=== PATIENT | female | born 1970 | race Caucasian/White ===

== ENCOUNTER → 2018-09-11 | Outpatient (CLI) | payer SELFPAY ==
[~2018-09-11] MED LIST: ASP81TEC PO; ISM30TCR PO; MTP25TSR PO; PRD20T PO; SMV10T PO
--- NOTE | 2018-09-11 19:57 | Diagnostic Imaging Report ---
INDICATION: Bilateral breast tenderness. EXAMINATION: Sonographic interrogation of all four quadrants and retroareolar regions of bilateral breasts was performed as well as bilateral axillae. FINDINGS: No sonographic abnormalities are identified within either breast. No solid or cystic masses are detected. IMPRESSION: Unremarkable bilateral breast ultrasound. Clinical followup is recommended. ACR BI-RADS Category 1: Negative. Result letter will be mailed to the patient. Note: At least 10% of breast cancer is not imaged by mammography. Dictated by: Dictated on workstation # [id number]
--- NOTE | 2018-09-11 20:03 | Diagnostic Imaging Report ---
INDICATION: Bilateral breast pain. No prior mammograms are available for comparison. 2-D and 3-D bilateral diagnostic mammography was performed with computer-aided detection (CAD) system. FINDINGS: Both breasts are heterogeneously dense, limiting the sensitivity of mammography. No mass or malignant-appearing microcalcifications are seen. The axillae are unremarkable. IMPRESSION: No mammographic features suspicious for malignancy are identified. Even so, sonographic interrogation of bilateral breasts is recommended for further evaluation and will be performed today. ACR BI-RADS Category 0: Incomplete. (Needs additional imaging evaluation). Result letter will be mailed to the patient. Note: At least 10% of breast cancer is not imaged by mammography. Dictated by: Dictated on workstation # [id number]
== END ==
LOC: RAD 12:49
PROVIDERS: ATTEND Nurse Practitioner Family
DX: N64.4 Mastodynia (principal)
CPT/HCPCS: 77066

== ENCOUNTER → 2019-08-12 | Outpatient (CLI) | payer OTHER ==
--- NOTE | 2019-08-12 15:21 | Diagnostic Imaging Report ---
PROCEDURE: CT maxillofacial without contrast. TECHNIQUE: Multiple contiguous axial images were obtained through the facial bones without the use of intravenous contrast. Auto Exposure Controls were utilized during the CT exam to meet ALARA standards for radiation dose reduction. INDICATION: Nasal injury. FINDINGS: The mandible is intact. The zygomatic arches are intact. The maxillary sinus todd appear to be intact. No displaced nasal bone fracture is seen. The nasal septum is deviated to the right. The orbital todd appear to be intact. The visualized paranasal sinuses are clear. IMPRESSION: No facial bone fracture is detected. Dictated by: Dictated on workstation # [id number]
== END ==
LOC: RAD 14:41
PROVIDERS: ATTEND Nurse Practitioner
DX: S09.92XA Unspecified injury of nose, initial encounter (principal); X58.XXXA Exposure to other specified factors, initial encounter
CPT/HCPCS: 70486

== ENCOUNTER 2021-05-17 14:41 | Inpatient (IN) | payer SELFPAY ==
[~2021-05-17] VITALS: Ht 149.2 cm; Wt 72.1 kg
[2021-05-17] MEDS ORDERED: NS IV 1000 ML 1,000 ML IV SCH (15:15)
[2021-05-17 15:26] LABS: BASOPHILS % (AUTO) 0 % (0-10); EOSINOPHILS % (AUTO) 0 % (0-10); HEMATOCRIT 45 % (35-52); HEMOGLOBIN 14.8 g/dL (11.5-16.0); LYMPHOCYTES # (AUTO) 0.7 10^3/uL (1.0-4.0); LYMPHOCYTES % (AUTO) 7 % (12-44); MEAN CORPUSCULAR HEMOGLOBIN 31 pg (25-34); MEAN CORPUSCULAR HGB CONC 33 g/dL (32-36); MEAN CORPUSCULAR VOLUME 92 fL (80-99); MEAN PLATELET VOLUME 9.9 fL (9.0-12.2); MONOCYTES # (AUTO) 0.2 10^3/uL (0.0-1.0); MONOCYTES % (AUTO) 2 % (0-12); NEUTROPHILS # (AUTO) 9.1 10^3/uL (1.8-7.8); NEUTROPHILS % (AUTO) 90 % (42-75); PLATELET COUNT 274 10^3/uL (130-400); WHITE BLOOD COUNT 10.1 10^3/uL (4.3-11.0)
[2021-05-17] MEDS ORDERED: ONDANSETRON 4 MG/2 ML (SDV) Z0FRAN IVP ONE (15:30)
[2021-05-17 15:33] LABS: ALBUMIN 4.2 GM/DL (3.2-4.5)
[2021-05-17 15:34] LABS: BILIRUBIN,URINE NEGATIVE (NEGATIVE); CLARITY,URINE CLEAR; COLOR,URINE YELLOW; GLUCOSE, URINE (UA) NEGATIVE (NEGATIVE); KETONES,URINE NEGATIVE (NEGATIVE); LEUKOCYTE ESTERASE ,URINE 2+ (NEGATIVE); NITRITE,URINE NEGATIVE (NEGATIVE); PH,URINE 7.5 (5-9); PROTEIN,URINE NEGATIVE (NEGATIVE)
[2021-05-17 15:34] LABS: CHLORIDE 105 MMOL/L (98-107); SODIUM 142 MMOL/L (135-145)
[2021-05-17 15:35] LABS: CALCIUM 9.7 MG/DL (8.5-10.1)
[2021-05-17 15:36] LABS: GLUCOSE 149 MG/DL (70-105)
[2021-05-17 15:37] LABS: CARBON DIOXIDE 26 MMOL/L (21-32)
[2021-05-17 15:38] LABS: BILIRUBIN,TOTAL 0.4 MG/DL (0.1-1.0)
[2021-05-17 15:39] LABS: ALKALINE PHOSPHATASE 86 U/L (40-136)
[2021-05-17 15:40] LABS: CREATININE SERUM 0.79 MG/DL (0.60-1.30); GFR ESTIMATED > 60
[2021-05-17 15:41] LABS: ATYPICAL LYMPHOCYTES 1 %; BAND NEUTROPHILS 2 %; BUN/CREATININE RATIO 20; LYMPHOCYTES % (MANUAL) 8 %; NEUTROPHILS % (MANUAL) 87 %; RBC MORPH NORMAL; REACTIVE LYMPHOCYTES 2 %
[2021-05-17 15:43] LABS: ALANINE AMINOTRANSFERASE 21 U/L (0-55)
[2021-05-17 15:43] LABS: BACTERIA,URINE MODERATE /HPF
--- NOTE | 2021-05-17 16:04 | Diagnostic Imaging Report ---
INDICATION: Sepsis. COMPARISON: 08/14/2016. FINDINGS: A single frontal view of the chest demonstrates normal heart size and pulmonary vascularity. The lungs are well aerated and clear. No large pleural effusion or pneumothorax is seen. The visualized osseous structures show no acute abnormalities. IMPRESSION: No acute cardiopulmonary process. Dictated by: Dictated on workstation # [id number]
[2021-05-17] MEDS ORDERED: methylPREDNISolone 125 MG (Solu-MEDROL) VIAL IVP ONE (16:15)
[2021-05-17] MEDS ORDERED: HYDROcodone/APAP 7.5 MG/325 MG (LORTAB, LORCET PLUS) TABLET PO ONE (16:15)
--- NOTE | 2021-05-17 16:48 | ED EENT ---
History of Present Illness General Chief Complaint: Allergic Reaction Stated Complaint: FACIAL SWELLING, RASH History of Present Illness Date Seen by Provider: May 17, 2021 Time Seen by Provider: 14:50 Initial Comments 51-year-old female reports swelling around her right eye yesterday. She was diagnosed with a sinus infection and started on Keflex 500 mg, she has taken 2 doses and has noted significant worsening in the swelling around her right eye. She thought it was because of an allergic reaction, however it appears to be more of a cellulitis. She has no other signs or symptoms of allergic reaction (rash, swelling of throat or tongue, dyspnea). She was also started on prednisone 20 mg once daily and she is taken 1 dose. She has a history of seasonal allergies but no other allergic responses. She has limited vision from the right eye due to the swelling and partial to near closure of the eyelid. Timing/Duration: yesterday Location: eye (R) Associated Symptoms: facial pain/swelling (Right); No fever, No nasal congestion/drainage; sinus infection Allergies and Home Medications Allergies Coded Allergies: Sulfa (Sulfonamide Antibiotics) (Verified Allergy, Unknown, 03/12/07) Home Medications Aspirin 81 Mg Tabec, 81 MG PO DAILY, (Reported) Isosorbide Mononitrate 30 Mg Tab, 30 MG PO DAILY, (Reported) Metoprolol Succinate 25 Mg Tab, 25 MG PO DAILY, (Reported) Prednisone 20 Mg Tab, 40 MG PO DAILY Prescribed by: ELIANA HARRINGTON on 08/14/16 1624 Simvastatin 10 Mg Tab, 10 MG PO DAILY, (Reported) Patient Home Medication List Home Medication List Reviewed: Yes Review of Systems Review of Systems Constitutional: no symptoms reported, see HPI; No fever Eyes: See HPI, Inflammation, Pain; Denies Photophobia, Denies Contact Lenses, Denies Glasses Ears: No Symptoms Reported, See HPI Nose: no symptoms reported, see HPI; denies congestion Mouth: no symptoms reported, see HPI Throat: no symptoms reported, see HPI Respiratory: no symptoms reported, see HPI Cardiovascular: no symptoms reported, see HPI Gastrointestinal: see HPI, nausea : No Musculoskeletal: no symptoms reported, see HPI All Other Systems Reviewed Negative Unless Noted: Yes Past Cttflne-Zrkpqz-Jqzvjx Hx Past Med/Social Hx: Reviewed Nursing Past Med/Soc Hx Patient Social History Recent Hopitalizations: Yes (2 BIRTHS) Past Medical History Reproductive Disorders: No Physical Exam Vital Signs Vital Signs - First Documented 05/17/21 14:50 Temp 36.8 Pulse 91 Resp 18 B/P (MAP) 132/77 (95) Pulse Ox 98 O2 Delivery Room Air Height, Weight, BMI Height: 4'11.00" Weight: 185lbs. 11.2oz. [id number]; BMI Method:Stated General Appearance: WD/WN, mild distress Eyes: right eye other (Swelling); left eye normal inspection; bilateral eye PERRL, bilateral eye EOMI Ears: bilateral ear auricle normal, bilateral ear canal normal, bilateral ear TM normal Nose: normal inspection; No discharge Mouth/Throat: normal mouth inspection, pharynx normal; No dental tenderness Neck: full range of motion, supple, normal inspection, lymphadenopathy (R) Cardiovascular: normal peripheral pulses, regular rate, rhythm Respiratory: chest non-tender, lungs clear, normal breath sounds Gastrointestinal: normal bowel sounds, non tender, soft Neurologic/Psychiatric: no motor/sensory deficits, alert, normal mood/affect, oriented x 3 Skin: normal color, warm/dry Progress/Results/Core Measures Results/Orders Lab Results Laboratory Tests Test 05/17/21 15:00 05/17/21 15:20 05/17/21 15:26 05/17/21 16:24 Range/Units White Blood Count 10.1 4.3-11.0 10^3/uL Red Blood Count 4.85 3.80-5.11 10^6/uL Hemoglobin 14.8 11.5-16.0 g/dL Hematocrit 45 35-52 % Mean Corpuscular Volume 92 80-99 fL Mean Corpuscular Hemoglobin 31 25-34 pg Mean Corpuscular Hemoglobin Concent 33 32-36 g/dL Red Cell Distribution Width 12.4 10.0-14.5 % Platelet Count 274 130-400 10^3/uL Mean Platelet Volume 9.9 9.0-12.2 fL Immature Granulocyte % (Auto) 1 % Neutrophils (%) (Auto) 90 H 42-75 % Lymphocytes (%) (Auto) 7 L 12-44 % Monocytes (%) (Auto) 2 0-12 % Eosinophils (%) (Auto) 0 0-10 % Basophils (%) (Auto) 0 0-10 % Neutrophils # (Auto) 9.1 H 1.8-7.8 10^3/uL Lymphocytes # (Auto) 0.7 L 1.0-4.0 10^3/uL Monocytes # (Auto) 0.2 0.0-1.0 10^3/uL Eosinophils # (Auto) 0.0 0.0-0.3 10^3/uL Basophils # (Auto) 0.0 0.0-0.1 10^3/uL Immature Granulocyte # (Auto) 0.1 0.0-0.1 10^3/uL Neutrophils % (Manual) 87 % Lymphocytes % (Manual) 8 % Band Neutrophils 2 % Atypical Lymphocytes 1 % Reactive Lymphocytes 2 % Blood Morphology Comment NORMAL Sodium Level 142 135-145 MMOL/L Potassium Level 4.0 3.6-5.0 MMOL/L Chloride Level 105 98-107 MMOL/L Carbon Dioxide Level 26 21-32 MMOL/L Anion Gap 11 5-14 MMOL/L Blood Urea Nitrogen 16 7-18 MG/DL Creatinine 0.79 0.60-1.30 MG/DL Estimat Glomerular Filtration Rate > 60 BUN/Creatinine Ratio 20 Glucose Level 149 H 70-105 MG/DL Calcium Level 9.7 8.5-10.1 MG/DL Corrected Calcium 9.5 8.5-10.1 MG/DL Total Bilirubin 0.4 0.1-1.0 MG/DL Aspartate Amino Transf (AST/SGOT) 23 5-34 U/L Alanine Aminotransferase (ALT/SGPT) 21 0-55 U/L Alkaline Phosphatase 86 40-136 U/L Total Protein 8.0 6.4-8.2 GM/DL Albumin 4.2 3.2-4.5 GM/DL Lactic Acid Level 1.13 0.50-2.00 MMOL/L Urine Color YELLOW Urine Clarity CLEAR Urine pH 7.5 5-9 Urine Specific [place] 1.020 1.016-1.022 Urine Protein NEGATIVE NEGATIVE Urine Glucose (UA) NEGATIVE NEGATIVE Urine Ketones NEGATIVE NEGATIVE Urine Nitrite NEGATIVE NEGATIVE Urine Bilirubin NEGATIVE NEGATIVE Urine Urobilinogen 0.2 < = 1.0 MG/DL Urine Leukocyte Esterase 2+ H NEGATIVE Urine RBC (Auto) NEGATIVE NEGATIVE Urine RBC NONE /HPF Urine WBC 5-10 H /HPF Urine Squamous Epithelial Cells 10-25 H /HPF Urine Crystals NONE /LPF Urine Bacteria MODERATE H /HPF Urine Casts NONE /LPF Urine Mucus NEGATIVE /LPF Urine Culture Indicated CULTURE PENDING Prothrombin Time 13.6 12.2-14.7 SEC INR Comment 1.0 0.8-1.4 Activated Partial Thromboplast Time 30 24-35 SEC My Orders Orders - ALLAN FLOREZP Cbc With Automated Diff (05/17/21 15:13) Comprehensive Metabolic Panel (05/17/21 15:13) Blood Culture (05/17/21 15:13) Urinalysis (05/17/21 15:13) Urine Culture (05/17/21 15:13) Protime With Inr (05/17/21 15:13) Partial Thromboplastin Time (05/17/21 15:13) Chest 1 View, Ap/Pa Only (05/17/21 15:13) Ed Iv/Invasive Line Start (05/17/21 15:13) Ns Iv 1000 Ml (Sodium Chloride 0.9%) (05/17/21 15:15) Lactic Acid Analyzer (05/17/21 15:13) Ondansetron Injection (Zofran Injectio (05/17/21 15:30) Manual Differential (05/17/21 15:00) Hydrocodone/Apap 7.5/325 Tab (Lortab 7. (05/17/21 16:15) Methylprednisolone Sod Succ (Solu-Medrol (05/17/21 16:15) Ct Maxillofacial Wo (05/17/21 16:23) Piperacillin Sodium/Tazobactam (Zosyn Vi (05/17/21 17:30) Fentanyl Inj (Sublimaze Injection) (05/17/21 17:30) Medications Given in ED Current Medications Medications Dose Ordered Sig/Makenna Route Start Time Stop Time Status Last Admin Dose Admin Acetaminophen/ Hydrocodone Bitart 1 ea ONCE ONCE PO 05/17/21 16:15 05/17/21 16:16 DC 05/17/21 16:21 1 EA Fentanyl Citrate 50 mcg ONCE ONCE IVP 05/17/21 17:30 05/17/21 17:31 DC 05/17/21 17:42 50 MCG Methylprednisolone Sodium Succinate 125 mg ONCE ONCE IVP 05/17/21 16:15 05/17/21 16:16 DC 05/17/21 16:21 125 MG Ondansetron HCl 4 mg ONCE ONCE IVP 05/17/21 15:30 05/17/21 15:31 DC 05/17/21 15:32 4 MG Piperacillin Sod/ Tazobactam Sod 4.5 gm/Sodium Chloride 100 ml @ 200 mls/hr ONCE ONCE IV 05/17/21 17:30 05/17/21 17:59 DC 05/17/21 17:42 200 MLS/HR Vital Signs/I&O 05/17/21 05/17/21 05/17/21 05/17/21 14:50 18:12 19:00 19:26 Temp 36.8 36.8 36.3 Pulse 91 78 64 Resp 18 18 16 B/P (MAP) 132/77 (95) 133/79 (95) 139/90 (106) Pulse Ox 98 98 96 96 O2 Delivery Room Air Room Air Room Air Room Air Progress Progress Note : Time: 14:50 Progress Note Patient seen and evaluated, will obtain labs, CT maxillofacial and continue to monitor. Zofran 4 mg IV for nausea, normal saline 1 L IV. 1520 patient complaining of increased pain will give hydrocodone for pain. Solu-Medrol 125 [address], will give Zosyn IV for antibiotic coverage. 1700 CT shows soft tissue cellulitis nothing extending into the post septal region. Discussed with the patient, her pain resolved temporarily and has resumed, will give fentanyl 50 mcg IV for pain. Warm moist compresses applied to right eye [address] Deutsch, agreed with plans for admission will continue Zosyn and add vancomycin. Patient agreeable with plans for admission. 1820 Dr. Deutsch here to see patient. Diagnostic Imaging Diagonstic Imaging: Xray Plain Films/CT/US/NM/MRI: chest Comments NAME: CRISTAL CÁRDENAS [facility] REC#: [id number] PT STATUS: REG ER : 1970 PHYSICIAN: ALLAN FLOREZP ADMIT DATE: 05/17/21/ER Draft Date of Exam:05/17/21 CHEST 1 VIEW, AP/PA ONLY INDICATION: Sepsis. COMPARISON: 08/14/2016. FINDINGS: A single frontal view of the chest demonstrates normal heart size and pulmonary vascularity. The lungs are well aerated and clear. No large pleural effusion or pneumothorax is seen. The visualized osseous structures show no acute abnormalities. IMPRESSION: No acute cardiopulmonary process. Dictated on workstation # [id number] Dict: 05/17/21 1603 Trans: 05/17/21 1604 [id number] Interpreted by: MIKE ULRICH MD Electronically signed by: Reviewed: Reviewed by Me Diagonstic Imaging: CT Plain Films/CT/US/NM/MRI: other (maxio-facial) Comments NAME: CRISTAL CÁRDENAS [facility] REC#: [id number] PT STATUS: REG ER : 1970 PHYSICIAN: ALLAN FLOREZ ADMIT DATE: 05/17/21/ER Draft Date of Exam:05/17/21 CT MAXILLOFACIAL WO PROCEDURE: CT maxillofacial without contrast. TECHNIQUE: Multiple contiguous axial images were obtained through the facial bones without the use of intravenous contrast. Auto Exposure Controls were utilized during the CT exam to meet ALARA standards for radiation dose reduction. INDICATION: Facial trauma with right-sided facial swelling. COMPARISON: CT face from 08/12/2019. FINDINGS: There is no acute fracture in the nasal bones. Anterior nasal spine and osseous nasal septum are intact. No fracture within the orbits. The zygomatic arches and maxillary sinus todd are intact. No fracture of the pterygoid plates. Moderate periorbital soft tissue swelling on the right which extends into the malar region. The globes are symmetric without rupture or traumatic lens dislocation. No intraorbital hemorrhage. The temporomandibular joints are normal in alignment with moderate degenerative arthritis present. No fracture in the mandible. Numerous small level II cervical lymph nodes are likely reactive in nature. IMPRESSION: 1. No acute fracture in the mid face or mandible. 2. Moderate subcutaneous reticulations and swelling involving the right hemiface does not have postseptal extension. This may represent cellulitis without a drainable abscess. 3. No appreciable periapical lucencies associated with the mandibular or maxillary teeth that would suggest odontogenic source of facial swelling. Dictated on workstation # [id number] Dict: 05/17/21 1655 Trans: 05/17/21 1704 [id number] Interpreted by: SILVESTRE BLEVINS MD Electronically signed by: Reviewed: Reviewed by Me Departure Impression Primary Impression: Periorbital cellulitis of right eye Additional Impression: UTI (urinary tract infection) Qualified Codes: N30.00 - Acute cystitis without hematuria Disposition: ADMITTED INPATIENT Condition: Stable Admissions Decision to Admit Reason: Admit from ER (General) Decision to Admit/Date: May 17, 2021 Time/Decision to Admit Time: 17:30 Departure-Patient Inst. Referrals: [facility] (PCP/Family) Primary Care Physician ALLAN FLOREZ May 17, 2021 16:48
--- NOTE | 2021-05-17 17:05 | Diagnostic Imaging Report ---
PROCEDURE: CT maxillofacial without contrast. TECHNIQUE: Multiple contiguous axial images were obtained through the facial bones without the use of intravenous contrast. Auto Exposure Controls were utilized during the CT exam to meet ALARA standards for radiation dose reduction. INDICATION: Facial trauma with right-sided facial swelling. COMPARISON: CT face from 08/12/2019. FINDINGS: There is no acute fracture in the nasal bones. Anterior nasal spine and osseous nasal septum are intact. No fracture within the orbits. The zygomatic arches and maxillary sinus todd are intact. No fracture of the pterygoid plates. Moderate periorbital soft tissue swelling on the right which extends into the malar region. The globes are symmetric without rupture or traumatic lens dislocation. No intraorbital hemorrhage. The temporomandibular joints are normal in alignment with moderate degenerative arthritis present. No fracture in the mandible. Numerous small level II cervical lymph nodes are likely reactive in nature. IMPRESSION: 1. No acute fracture in the mid face or mandible. 2. Moderate subcutaneous reticulations and swelling involving the right hemiface does not have postseptal extension. This may represent cellulitis without a drainable abscess. 3. No appreciable periapical lucencies associated with the mandibular or maxillary teeth that would suggest odontogenic source of facial swelling. Dictated by: Dictated on workstation # [id number]
[2021-05-17 17:07] LABS: PROTHROMBIN TIME PATIENT 13.6 SEC (12.2-14.7)
[2021-05-17] MEDS ORDERED: fentaNYL INJ 100 MCG/2 ML AMP IVP ONE (17:30)
[2021-05-17] MEDS ORDERED: PIPERACILLIN SODIUM/TAZOBACTAM 4.5 GM in NS (IVPB) 100 ML IV ONE (17:30)
--- NOTE | 2021-05-17 18:21 | History & Physical-Hospitalist ---
History of Present Illness HPI/Chief Complaint Chief complaint: Right-sided swelling and erythema History present illness: This is a 51-year-old white female who was seen at [facility] earlier in the day for right-sided swelling was given a steroid and antibiotics but the swelling worsened to the point that she can no longer see out of her right eye. She was found to have periorbital cellulitis with no drainage or abscess on CT scan so she was placed on vancomycin and Zosyn aggressive IV antibiotics and IV steroids and will be admitted with gentle IV fl uids. Source: patient, family, RN/MD Exam Limitations: no limitations Date Seen 05/17/21 Time Seen by a Provider: 18:00 Attending Physician Laura Deutsch DO [facility] Referring Physician Date of Admission May 17, 2021 at 17:50 Home Medications & Allergies Home Medications Reviewed patient Home Medication Reconciliation performed by pharmacy medication reconciliations electrician technician and/or nursing. Patients Allergies have been reviewed. Allergies Allergies Coded Allergies Sulfa (Sulfonamide Antibiotics) (Verified Allergy, Unknown, 03/12/07) Past Sfomdhg-Bpdzpx-Bcdzef Hx Patient Social History Marrital Status: Employed/Student: unemployed Tobacco Use?: No Smoking Status: Never a Smoker Substance use?: No Alcohol Use?: No Current Status Primary Language: Korean Past Medical History Blood Disorders: No Review of Systems Constitutional: see HPI EENTM: see HPI, vision loss Physical Exam Physical Exam Vital Signs Vital Signs - First Documented 05/17/21 14:50 Temp 36.8 Pulse 91 Resp 18 B/P (MAP) 132/77 (95) Pulse Ox 98 O2 Delivery Room Air Capillary Refill : Less Than 3 Seconds Height, Weight, BMI Height: 4'11.00" Weight: 185lbs. 11.2oz. 84.689799xc; 30.00 BMI Method:Stated General Appearance: No Apparent Distress, Anxious Eyes: Right Eye Normal Inspection, Right Eye PERRL HEENT: Moist Mucous Membranes, Other (Right side of face with edema and erythema profound) Neck: Full Range of Motion, Normal Inspection, Non Tender Respiratory: Chest Non Tender, Lungs Clear, Normal Breath Sounds, No Accessory Muscle Use, No Respiratory Distress Cardiovascular: Regular Rate, Rhythm, No Edema, No Gallop, No JVD, No Murmur, Normal Peripheral Pulses Gastrointestinal: Normal Bowel Sounds, No Organomegaly, No Pulsatile Mass, Non Tender, Soft Back: Normal Inspection, No CVA Tenderness, No Vertebral Tenderness Extremity: Normal Capillary Refill, Normal Inspection, Normal Range of Motion, Non Tender, No Calf Tenderness, No Pedal Edema Neurologic/Psychiatric: Alert, Oriented x3, No Motor/Sensory Deficits, Normal Mood/Affect Skin: Normal Color, Warm/Dry Lymphatic: No Adenopathy Results Results/Procedures Labs Laboratory Tests 05/17/21 15:00 05/18/21 06:05 Patient resulted labs reviewed. Assessment/Plan Admission Diagnosis Assessment: Periorbital cellulitis Profound right facial edema Plan: Vancomycin and Zosyn Gentle IV fluids Supportive care Admission Status: Inpatient Order (span 2 midnights) Reason for Inpatient Admission: Severe periorbital cellulitis Diagnosis/Problems Diagnosis/Problems (1) Periorbital cellulitis of right eye Status: Acute LAURA DEUTSCH DO May 17, 2021 18:21
[2021-05-17] MEDS ORDERED: VANCOMYCIN 1250 MG/NS 250 ML IVPB IV NR ×2 (19:00)
[2021-05-17] MEDS ORDERED: ONDANSETRON 4 MG/2 ML (SDV) Z0FRAN IV PRN (19:00)
[2021-05-17] MEDS ORDERED: CATHETER FLUSH 10 ML SYR IV PRN (19:00)
[2021-05-17] MEDS ORDERED: ACETAMINOPHEN 325 MG TABLET PO PRN (19:00)
[2021-05-17] MEDS: NS IV 1000 ML 1,000 ML IV SCH (19:19)
[2021-05-17] MEDS: fentaNYL INJ 100 MCG/2 ML AMP IV PRN ×2 (19:23→23:27)
[2021-05-17 19:26] VITALS: BP 139/90
[2021-05-17] MEDS ORDERED: DOCUSATE SODIUM 100 MG (COLACE) CAP PO PRN (21:30)
[2021-05-17] MEDS ORDERED: MELATONIN 3 MG TABLET PO PRN (21:30)
[2021-05-17] MEDS ORDERED: ALPRAZolam 0.25 MG (XANAX) TAB PO PRN (21:30)
[2021-05-17] MEDS ORDERED: CALCIUM CARBONATE 500 MG (TUMS) TAB.CHEW PO PRN (21:30)
[2021-05-17] MEDS ORDERED: LOPERAMIDE 2 MG (IMODIUM) TABLET PO PRN (21:30)
[2021-05-17] MEDS: ENOXAPARIN 40 MG/0.4 ML (LOVENOX) SYR SC SCH (22:47)
[2021-05-17] MEDS: PIPERACILLIN/TAZO 4.5 GM/NS 100 ML IV SCH ×2 (23:18)
[2021-05-17] MEDS: methylPREDNISolone 125 MG (Solu-MEDROL) VIAL IV SCH (23:18)
[2021-05-17] MEDS: diphenhydrAMINE 25 MG TAB (BENADRYL) PO PRN (23:26)
[2021-05-18] VITALS (7 sets, daily range): BP systolic 119–136; BP diastolic 66–90
[2021-05-18] MEDS ORDERED: methylPREDNISolone 125 MG (Solu-MEDROL) VIAL IV SCH
[2021-05-18] MEDS: fentaNYL INJ 100 MCG/2 ML AMP IV PRN ×4 (03:29→20:35)
[2021-05-18] MEDS: methylPREDNISolone 125 MG (Solu-MEDROL) VIAL IV SCH ×4 (06:10→23:03)
[2021-05-18] MEDS: VANCOMYCIN 750 MG/NS 250 ML IVPB IV SCH ×4 (06:10→17:55)
[2021-05-18 06:16] LABS: BASOPHILS % (AUTO) 0 % (0-10); EOSINOPHILS % (AUTO) 0 % (0-10); HEMATOCRIT 40 % (35-52); LYMPHOCYTES # (AUTO) 0.9 10^3/uL (1.0-4.0); LYMPHOCYTES % (AUTO) 8 % (12-44); MEAN CORPUSCULAR HEMOGLOBIN 30 pg (25-34); MEAN CORPUSCULAR HGB CONC 33 g/dL (32-36); MEAN CORPUSCULAR VOLUME 93 fL (80-99); MONOCYTES # (AUTO) 0.2 10^3/uL (0.0-1.0); MONOCYTES % (AUTO) 2 % (0-12); NEUTROPHILS # (AUTO) 10.5 10^3/uL (1.8-7.8); NEUTROPHILS % (AUTO) 90 % (42-75); PLATELET COUNT 243 10^3/uL (130-400); WHITE BLOOD COUNT 11.7 10^3/uL (4.3-11.0)
[2021-05-18 06:30] LABS: CHLORIDE 108 MMOL/L (98-107); POTASSIUM 4.1 MMOL/L (3.6-5.0); SODIUM 140 MMOL/L (135-145)
[2021-05-18 06:32] LABS: CALCIUM 8.4 MG/DL (8.5-10.1); GLUCOSE 168 MG/DL (70-105)
[2021-05-18 06:33] LABS: CARBON DIOXIDE 23 MMOL/L (21-32)
--- NOTE | 2021-05-18 06:35 | Progress Note - Hospitalist ---
Subjective HPI/CC On Admission Date Seen by Provider: May 18, 2021 Time Seen by Provider: 09:30 Chief complaint: Right-sided swelling and erythema History present illness: This is a 51-year-old white female who was seen at the [facility] earlier in the day for right-sided swelling was given a steroid and antibiotics but the swelling worsened to the point that she can no longer see out of her right eye. She was found to have periorbital cellulitis with no drainage or abscess on CT scan so she was placed on vancomycin and Zosyn aggressive IV antibiotics and IV steroids and will be admitted with gentle IV fluids. Subjective/Events-last exam Pt doing a little better Swelling persists Redness is improved Vancomycin and Zosyn maintained Pain is well controlled Review of Systems HEENT: Eye Pain Focused Exam Lactate Level 05/17/21 15:20: Lactic Acid Level 1.13 Objective Exam Vital Signs Vital Signs Date Time Temp Pulse Resp B/P (MAP) Pulse Ox O2 Delivery O2 Flow Rate FiO2 05/19/21 03:54 36.9 51 18 122/79 (93) 95 Room Air Capillary Refill : Less Than 3 Seconds General Appearance: No Apparent Distress, WD/WN HEENT: Other (Right-sided facial edema but erythema improved) Respiratory: Lungs Clear Neurologic/Psychiatric: Alert, Oriented x3, No Motor/Sensory Deficits, Normal Mood/Affect Results/Procedures Lab Laboratory Tests 05/18/21 06:05 Patient resulted labs reviewed. Assessment/Plan Assessment and Plan Assess & Plan/Chief Complaint Assessment: Periorbital cellulitis Profound right facial edema Plan: Vancomycin and Zosyn Gentle IV fluids Supportive care 05/18/2021: IV antibiotics IV steroids Monitor closely Diagnosis/Problems Diagnosis/Problems (1) Periorbital cellulitis of right eye Status: Acute SERG CERVANTES DO May 18, 2021 06:35
[2021-05-18 06:36] LABS: CREATININE SERUM 0.74 MG/DL (0.60-1.30); GFR ESTIMATED > 60
[2021-05-18 06:37] LABS: BUN/CREATININE RATIO 14
[2021-05-18] MEDS: diphenhydrAMINE 25 MG TAB (BENADRYL) PO PRN ×2 (07:23→23:16)
[2021-05-18] MEDS: SENNA W/DOCUSATE (SENOKOT S) TABLET PO SCH ×2 (08:39→19:41)
[2021-05-18] MEDS: NS IV 1000 ML 1,000 ML IV SCH (08:39)
[2021-05-18] MEDS: polyethylene glycoL POWDER 17 GM (MIRALAX) PACK PO SCH ×2 (08:39→19:41)
[2021-05-18] MEDS: PIPERACILLIN/TAZO 4.5 GM/NS 100 ML IV SCH ×6 (08:39→23:03)
[2021-05-18] MEDS ORDERED: PRD20T PO (09:10)
[2021-05-18] MEDS ORDERED: CALC300T4 PO (09:10)
[2021-05-18] MEDS ORDERED: MULT-1136 PO (09:10)
[2021-05-18] MEDS ORDERED: NAPR220C11 PO (09:10)
[2021-05-18] MEDS ORDERED: BIOT25007 PO (09:10)
[2021-05-18] MEDS ORDERED: NAPR1TAB PO (09:10)
[2021-05-18] MEDS ORDERED: FEXO-46 PO (09:10)
[2021-05-18] MEDS ORDERED: CEPH500C PO (09:10)
[2021-05-18] MEDS: ENOXAPARIN 40 MG/0.4 ML (LOVENOX) SYR SC SCH (19:42)
[2021-05-19 03:54] VITALS: BP 122/79
[2021-05-19] MEDS ORDERED: TROUGH ORDER-PHARMACY XX NR (06:00)
--- NOTE | 2021-05-19 06:08 | Progress Note - Hospitalist ---
Subjective HPI/CC On Admission Date Seen by Provider: May 19, 2021 Time Seen by Provider: 10:00 Chief complaint: Right-sided swelling and erythema History present illness: This is a 51-year-old white female who was seen at [facility] earlier in the day for right-sided swelling was given a steroid and antibiotics but the swelling worsened to the point that she can no longer see out of her right eye. She was found to have periorbital cellulitis with no drainage or abscess on CT scan so she was placed on vancomycin and Zosyn aggressive IV antibiotics and IV steroids and will be admitted with gentle IV fluids. Subjective/Events-last exam Pt doing a lot better Right side of face is much improved WC is 15.4 from steroid effect Magic mouthwash will be given for ampthus ulcers Decreasing steroids DC planned for home tomorrow Review of Systems General: Fatigue Focused Exam Lactate Level 05/17/21 15:20: Lactic Acid Level 1.13 Objective Exam Vital Signs Vital Signs Date Time Temp Pulse Resp B/P (MAP) Pulse Ox O2 Delivery O2 Flow Rate FiO2 05/20/21 03:52 36.3 68 18 124/78 (93) 97 Room Air Capillary Refill : Less Than 3 Seconds General Appearance: No Apparent Distress, WD/WN HEENT: Other (Right sided facial edema much improved) Respiratory: Lungs Clear Cardiovascular: Regular Rate, Rhythm Neurologic/Psychiatric: Alert, Oriented x3 Results/Procedures Lab Laboratory Tests 05/19/21 06:25 Patient resulted labs reviewed. Assessment/Plan Assessment and Plan Assess & Plan/Chief Complaint Assessment: Periorbital cellulitis Profound right facial edema Plan: Vancomycin and Zosyn Gentle IV fluids Supportive care 05/18/2021: IV antibiotics IV steroids Monitor closely 05/19/2021: Continue IV antibiotics Discharge home tomorrow Decrease steroids Diagnosis/Problems Diagnosis/Problems (1) Periorbital cellulitis of right eye Status: Acute SERG CERVANTES DO May 19, 2021 06:08
[2021-05-19] MEDS: methylPREDNISolone 125 MG (Solu-MEDROL) VIAL IV SCH ×2 (06:29→19:24)
[2021-05-19 06:37] LABS: BASOPHILS % (AUTO) 0 % (0-10); EOSINOPHILS % (AUTO) 0 % (0-10); HEMATOCRIT 38 % (35-52); HEMOGLOBIN 12.5 g/dL (11.5-16.0); LYMPHOCYTES # (AUTO) 1.3 10^3/uL (1.0-4.0); LYMPHOCYTES % (AUTO) 8 % (12-44); MEAN CORPUSCULAR HEMOGLOBIN 31 pg (25-34); MEAN CORPUSCULAR HGB CONC 33 g/dL (32-36); MEAN CORPUSCULAR VOLUME 94 fL (80-99); MEAN PLATELET VOLUME 10.3 fL (9.0-12.2); MONOCYTES # (AUTO) 0.6 10^3/uL (0.0-1.0); MONOCYTES % (AUTO) 4 % (0-12); NEUTROPHILS # (AUTO) 13.3 10^3/uL (1.8-7.8); NEUTROPHILS % (AUTO) 87 % (42-75); PLATELET COUNT 252 10^3/uL (130-400); WHITE BLOOD COUNT 15.4 10^3/uL (4.3-11.0)
[2021-05-19 06:51] LABS: ALBUMIN 3.5 GM/DL (3.2-4.5); CHLORIDE 108 MMOL/L (98-107); POTASSIUM 4.7 MMOL/L (3.6-5.0); SODIUM 141 MMOL/L (135-145)
[2021-05-19 06:52] LABS: CALCIUM 8.5 MG/DL (8.5-10.1)
[2021-05-19 06:53] LABS: GLUCOSE 151 MG/DL (70-105); TOTAL PROTEIN 6.7 GM/DL (6.4-8.2)
[2021-05-19 06:54] LABS: CARBON DIOXIDE 23 MMOL/L (21-32)
[2021-05-19 06:55] LABS: BILIRUBIN,TOTAL 0.3 MG/DL (0.1-1.0)
[2021-05-19 06:57] LABS: ALKALINE PHOSPHATASE 60 U/L (40-136); CREATININE SERUM 0.75 MG/DL (0.60-1.30); GFR ESTIMATED > 60
[2021-05-19 06:58] LABS: BUN/CREATININE RATIO 20
[2021-05-19 07:00] LABS: ALANINE AMINOTRANSFERASE 24 U/L (0-55)
[2021-05-19 07:05] LABS: VANCOMYCIN,TROUGH 6.7 UG/ML (10.0-20.0)
[2021-05-19 07:35] VITALS: BP 149/75
[2021-05-19] MEDS: VANCOMYCIN INJECTION 1,250 MG in NS (IVPB) 250 ML IV SCH ×2 (07:50→20:12)
[2021-05-19] MEDS: PIPERACILLIN/TAZO 4.5 GM/NS 100 ML IV SCH ×6 (09:07→23:39)
[2021-05-19] MEDS: polyethylene glycoL POWDER 17 GM (MIRALAX) PACK PO SCH ×2 (09:07→19:18)
[2021-05-19] MEDS: SENNA W/DOCUSATE (SENOKOT S) TABLET PO SCH ×2 (09:07→19:18)
[2021-05-19 11:30] VITALS: BP 126/69
[2021-05-19] MEDS: MAGIC MOUTHWASH (ADULT) PO SCH ×12 (12:11→19:23)
[2021-05-19] MEDS: MAGIC MOUTHWASH, ADULT 155 ML BOTTLE PO SCH ×2 (12:12→16:33)
[2021-05-19] MEDS: fentaNYL INJ 100 MCG/2 ML AMP IV PRN (14:19)
[2021-05-19] MEDS: diphenhydrAMINE 25 MG TAB (BENADRYL) PO PRN ×2 (14:22→21:49)
[2021-05-19 16:06] VITALS: BP 126/68
[2021-05-19] MEDS: ENOXAPARIN 40 MG/0.4 ML (LOVENOX) SYR SC SCH (19:24)
[2021-05-19 19:50] VITALS: BP 140/63
[2021-05-19 23:48] VITALS: BP 128/79
[2021-05-20 03:52] VITALS: BP 124/78
[2021-05-20 05:48] LABS: BASOPHILS % (AUTO) 0 % (0-10); EOSINOPHILS % (AUTO) 0 % (0-10); HEMATOCRIT 38 % (35-52); HEMOGLOBIN 12.5 g/dL (11.5-16.0); LYMPHOCYTES # (AUTO) 1.9 10^3/uL (1.0-4.0); LYMPHOCYTES % (AUTO) 17 % (12-44); MEAN CORPUSCULAR HEMOGLOBIN 31 pg (25-34); MEAN CORPUSCULAR HGB CONC 33 g/dL (32-36); MEAN CORPUSCULAR VOLUME 95 fL (80-99); MEAN PLATELET VOLUME 10.1 fL (9.0-12.2); MONOCYTES # (AUTO) 0.6 10^3/uL (0.0-1.0); MONOCYTES % (AUTO) 6 % (0-12); NEUTROPHILS # (AUTO) 8.4 10^3/uL (1.8-7.8); NEUTROPHILS % (AUTO) 76 % (42-75); PLATELET COUNT 249 10^3/uL (130-400)
[2021-05-20 05:58] LABS: ALBUMIN 3.5 GM/DL (3.2-4.5)
[2021-05-20 05:59] LABS: CHLORIDE 104 MMOL/L (98-107); POTASSIUM 4.4 MMOL/L (3.6-5.0); SODIUM 139 MMOL/L (135-145)
[2021-05-20 06:00] LABS: CALCIUM 8.6 MG/DL (8.5-10.1)
[2021-05-20 06:01] LABS: GLUCOSE 122 MG/DL (70-105); TOTAL PROTEIN 6.4 GM/DL (6.4-8.2)
[2021-05-20 06:02] LABS: CARBON DIOXIDE 27 MMOL/L (21-32)
[2021-05-20 06:03] LABS: BILIRUBIN,TOTAL 0.3 MG/DL (0.1-1.0)
[2021-05-20 06:04] LABS: ALKALINE PHOSPHATASE 66 U/L (40-136)
[2021-05-20 06:05] LABS: CREATININE SERUM 0.78 MG/DL (0.60-1.30); GFR ESTIMATED > 60
[2021-05-20 06:06] LABS: BUN/CREATININE RATIO 26
[2021-05-20 06:07] LABS: ALANINE AMINOTRANSFERASE 34 U/L (0-55)
[2021-05-20] MEDS: VANCOMYCIN INJECTION 1,250 MG in NS (IVPB) 250 ML IV SCH (06:26)
[2021-05-20] MEDS: PIPERACILLIN/TAZO 4.5 GM/NS 100 ML IV SCH ×2 (08:05)
[2021-05-20] MEDS: methylPREDNISolone 125 MG (Solu-MEDROL) VIAL IV SCH (08:05)
[2021-05-20] MEDS: SENNA W/DOCUSATE (SENOKOT S) TABLET PO SCH (08:06)
[2021-05-20] MEDS: polyethylene glycoL POWDER 17 GM (MIRALAX) PACK PO SCH (08:06)
[2021-05-20] MEDS: MAGIC MOUTHWASH (ADULT) PO SCH ×4 (08:06)
[2021-05-20 10:13] VITALS: BP 127/81
[2021-05-20] MEDS ORDERED: AMOX-358 PO (11:34)
--- NOTE | 2021-05-20 11:34 | Discharge Summary ---
Discharge Summary Hospital Course Was the Problem List Reviewed?: Yes Problems/Dx: (1) Periorbital cellulitis of right eye Status: Acute Hospital Course Date of Admission: May 17, 2021 at 17:50 Admission Diagnosis : [facility] Phys[facility] Date of Discharge: 05/20/21 Discharge Diagnosis: Right periorbital cellulitis Hospital Course: Standard course after admitted for severe right periorbital cellulitis patient was placed on broad-spectrum antibiotics IV steroids pain medication. Labs stabilized. Patient ultimately improved dramatically and was discharged in improved condition. Labs and Pending Lab Test: Laboratory Tests 05/20/21 05:40: White Blood Count 11.0, Red Blood Count 4.03, Hemoglobin 12.5, Hematocrit 38, Mean Corpuscular Volume 95, Mean Corpuscular Hemoglobin 31, Mean Corpuscular Hemoglobin Concent 33, Red Cell Distribution Width 12.8, Platelet Count 249, Mean Platelet Volume 10.1, Immature Granulocyte % (Auto) 1, Neutrophils (%) (Auto) 76H, Lymphocytes (%) (Auto) 17, Monocytes (%) (Auto) 6, Eosinophils (%) (Auto) 0, Basophils (%) (Auto) 0, Neutrophils # (Auto) 8.4H, Lymphocytes # (Auto ) 1.9, Monocytes # (Auto) 0.6, Eosinophils # (Auto) 0.0, Basophils # (Auto) 0.0, Immature Granulocyte # (Auto) 0.1, Sodium Level 139, Potassium Level 4.4, Chloride Level 104, Carbon Dioxide Level 27, Anion Gap 8, Blood Urea Nitrogen 20H, Creatinine 0.78, Estimat Glomerular Filtration Rate > 60, BUN/Creatinine Ratio 26, Glucose Level 122H, Calcium Level 8.6, Corrected Calcium 9.0, Total Bilirubin 0.3, Aspartate Amino Transf (AST/SGOT) 27, Alanine Aminotransferase (ALT/SGPT) 34, Alkaline Phosphatase 66, Total Protein 6.4, Albumin 3.5 Microbiology 05/17/21 Blood Culture - Preliminary, Resulted Probable Coag Negative Staph 05/17/21 Urine Culture - Final, Complete NO GROWTH Home Meds Active Reported Tums (Calcium Carbonate) 300 Mg Tab.chew 300-600 Mg PO UD PRN Aleve (Naproxen Sodium) 220 Mg Capsule 220-440 Mg PO BID PRN Biotin 2,500 Mcg Capsule 2,500 Mcg PO DAILY Multivitamin 1 Each Tablet 1 Each PO DAILY Fexofenadine HCl 180 Mg Tablet 180 Mg PO DAILY Prednisone 20 Mg Tab 40 Mg PO DAILY TAKES 2 (20MG) TABS FILLED 05-17-2021 #10/5 DAY SUPPLY Cephalexin 500 Mg Capsule 500 Mg PO QID FILLED 05-17-2021 #40/10 DAY SUPPLY Aleve-D Sinus & Cold Caplet (Naproxen Sodium/P-Ephed HCl) 1 Each Tab.er.12h 1 Ea PO Q12H PRN Assessment/Pt Instructions [facility] in 1 week Discharge Planning: <30 minutes discharge planning Discharge Physical Examination Vital Signs Vital Signs Date Time Temp Pulse Resp B/P (MAP) Pulse Ox O2 Delivery O2 Flow Rate FiO2 05/20/21 10:13 36.6 74 18 127/81 (96) 97 Room Air General Appearance: No Apparent Distress, WD/WN HEENT: Other (Dramatically improved right sided edema and erythema) Allergies: Coded Allergies: Sulfa (Sulfonamide Antibiotics) (Verified Allergy, Unknown, 03/12/07) Discharge Summary Date of Admission May 17, 2021 at 17:50 Date of Discharge Discharge Date: May 20, 2021 Admission Diagnosis Assessment: Periorbital cellulitis Profound right facial edema Plan: Vancomycin and Zosyn Gentle IV fluids Supportive care Discharge Diagnosis Assessment: Periorbital cellulitis Profound right facial edema Plan: Vancomycin and Zosyn Gentle IV fluids Supportive care 05/18/2021: IV antibiotics IV steroids Monitor closely 05/19/2021: Continue IV antibiotics Discharge home tomorrow Decrease steroids (1) Periorbital cellulitis of right eye Status: Acute SERG CERVANTES DO May 20, 2021 11:34
[2021-05-20 13:50] VITALS: BP 127/81
[2021-05-20] MEDS ORDERED: TROUGH ORDER-PHARMACY XX NR (18:30)
== END 2021-05-20 13:51 | disposition home or self-care (01) | DRG 603 ==
LOC: EDUNIT# 14:41 → ER 14:43 → INTOOBSV 17:50 → OBSVTOIN 17:50 → 4TH 17:50 → UNDOADMOB 17:50 → 4TH 17:50 → UNDODISIN 05-20 13:51
PROVIDERS: ADMIT Internal Medicine; ATTEND Internal Medicine
DX: L03.213 Periorbital cellulitis (principal); Z88.2 Allergy status to sulfonamides; Z79.82 Long term (current) use of aspirin; Z79.52 Long term (current) use of systemic steroids
CPT/HCPCS: 36410; 36415; 70486; 71045; 76937; 80048; 80053; 80202; 81000; 83605; 85007; 85025; 85027; 85610; 85730; 87040; 87088; 96374; 96375

== ENCOUNTER → 2023-02-15 | Outpatient (CLI) | payer BC ==
[~2023-02-15] MED LIST changes: +AMOX-358 PO; +BIOT25007 PO; +CALC300T4 PO; +CEPH500C PO; +MULT-1136 PO; +NAPR1TAB PO; +NAPR220C11 PO; +NF-ALLE180 PO
--- NOTE | 2023-02-15 18:56 | Diagnostic Imaging Report ---
EXAMINATION: Cervical spine radiographs, 3 views. COMPARISON: None. HISTORY: 53-year-old female, neck pain. FINDINGS: The lateral masses of C1 are normally aligned relative to C2. There is no identified acute fracture. There is no prevertebral soft tissue swelling. Additional alignment of the cervical spine is unremarkable. The cervical disc heights are well preserved. IMPRESSION: Unremarkable radiographs of the cervical spine. Dictated by: Dictated on workstation # [id number]
--- NOTE | 2023-02-15 18:57 | Diagnostic Imaging Report ---
EXAMINATION: Lumbar spine radiographs, 2 views. COMPARISON: None. HISTORY: 53-year-old female, low back pain. FINDINGS: There are 5 lumbar-type vertebral bodies. There is grade 1 anterolisthesis of L4 on L5. There is no identified compression deformity or fracture. The lumbar disc heights are fairly well preserved. There are right facet degenerative changes at L4-L5. The sacroiliac joints are unremarkable. There is a mild lumbar levocurvature. IMPRESSION: 1. Right facet degenerative changes at L4-L5 with mild grade 1 anterolisthesis of L4 on L5. 2. No identified compression deformity or fracture. 3. Mild lumbar levocurvature. Dictated by: Dictated on workstation # [id number]
== END ==
LOC: RAD 15:16
PROVIDERS: ATTEND Nurse Practitioner Family
DX: M47.816 Spondylosis without myelopathy or radiculopathy, lumbar region (principal); M43.16 Spondylolisthesis, lumbar region; M54.12 Radiculopathy, cervical region
CPT/HCPCS: 72040; 72100